=== PATIENT | female | born 1975 | race American Indian/Alaskan Native ===

== ENCOUNTER 2021-05-27 14:16 | Outpatient (CLI) | payer OTHER ==
--- NOTE | 2021-05-27 17:20 | Ultrasound Report ---
BILATERAL DIGITAL DIAGNOSTIC MAMMOGRAM WITH CAD CONVENTIONAL, 05/27/2021 BILATERAL LIMITED BREAST ULTRASOUND CLINICAL INFORMATION / INDICATION: Palpable area of concern ABNORMAL MAMMOGRAM TECHNIQUE: Digital bilateral mammographic imaging was performed. Spot compression views were obtained . Limited ultrasound was performed. This examination was interpreted with the benefit of Computer-Aid ed Detection (CAD) analysis. COMPARISON: None FINDINGS: Breast Density: There are scattered areas of fibroglandular density. MAMMOGRAPHIC FINDINGS: Within the upper outer quadrant of the right breast there are 2 round masses, otherwise no suspicious mass, microcalcification or architectural distortion are noted within the rig ht breast. Within the left breast there is a palpable skin marker in the periareolar older region. De ep to this there is a equal density mass which persists on spot compression measuring up to 2.5 cm. ULTRASOUND FINDINGS: Targeted ultrasound evaluation was performed of the area of interest. Ultrasou nd imaging of the right breast at the 10:00 position, 11 cm from the nipple demonstrates a hypoechoic oval parallel well-circumscribed lesion measuring 0.5 x 0.5 x 0.7 cm. Ultrasound imaging of the righ t breast at the 10:00 position, 9 cm the nipple demonstrates a well-circumscribed hypoechoic round ma ss measuring 0.6 x 0.6 x 0.6 cm. Ultrasound imaging of the left breast at the 3 clock periareolar reg ion demonstrates a 3.9 x 1.1 x 3.3 cm irregular, solid mass with internal vascularity and slightly in distinct margins. In speaking with the patient she states that this mass is new in the last 3 weeks a nd has not been palpated previously. IMPRESSION: Solid vascular mass within the left periareolar 3:00 position. Given its recent discovery and lack of completely benign findings an ultrasound-guided biopsy is recommended for further evalua tion. There are 2 hypoechoic masses within the right breast at the 10:00 position, one is 9 cm from t he nipple and the other 11 cm from the nipple. 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 A follow-u p right breast ultrasound in 6 months is recommended to further evaluate these 2 masses. Follow up recommendation: Biopsy BI-RADS Category 4: SUSPICIOUS FOR MALIGNANCY. A "normal" or negative report should not discourage follow up or biopsy of a clinically significant f inding. A written summary of these findings will be mailed to the patient. The patient will be entered into a mammography reporting system which will generate a reminder letter for the patient's next appointmen t at the appropriate interval. According to the [employer], yearly mammograms are recommended starting at age 40 and continuing as long as a woman is in good health. Breast MRI is recommended for women with an gilbert roximately 20-25% or greater lifetime risk of breast cancer, including women with a strong family his tory of breast or ovarian cancer and women who have been treated for Hodgkin's disease. Signer Name: Joel Kumar DO Signed: 05/27/2021 5:16 PM Workstation Name: [id number]
== END 2021-05-27 14:17 | disposition home or self-care (01) ==
LOC: MAMMO 14:16
PROVIDERS: ATTEND Specialist
DX: N63.21 Unspecified lump in the left breast, upper outer quadrant (principal); N64.9 Disorder of breast, unspecified; N63.11 Unspecified lump in the right breast, upper outer quadrant
CPT/HCPCS: 77066